=== PATIENT | female | born 1960 | race Caucasian/White ===

== ENCOUNTER 2019-11-25 13:37 | Observation (INO) | payer BC ==
[2019-11-25] MEDS ORDERED: GLUCAGON 1 MG/VIAL IM PRN (13:56)
[2019-11-25] MEDS ORDERED: D50W 25 GM/50 ML SYRINGE/VIAL IV PRN (13:56)
[2019-11-25 14:17] LABS: Absolute Lymphocytes (CBC) 2.3 K/uL (0.7-4.9); Basophils % 0.4 % (0-1.3); Hematocrit 39.2 % (36.0-45.0); Lymphocytes % 23.5 % (15.3-44.8); MPV 9.5 fL (7.6-11.3); RBC Red Blood Cell Count 4.47 M/uL (3.86-4.86)
[2019-11-25 14:22] VITALS: BMI 22.7
[2019-11-25 14:32] LABS: Potassium 3.6 mmol/L (3.5-5.1)
[2019-11-25 15:06] LABS: Urine Appearance CLOUDY; Urine Bilirubin NEGATIVE (NEG); Urine Blood NEGATIVE (NEG); Urine Color YELLOW; Urine Glucose 2+ (NEG); Urine Protein NEGATIVE (NEG); Urine Specific Gravity <=1.005 (1.005-1.030); Urine Urobilinogen 0.2 mg/dL (0.2-1.0); Urine pH 6.5 (5.0-7.0)
[2019-11-25 15:36] LABS: Urine Bacteria >50 /HPF (<20); Urine RBC <5 /HPF (NONE SEEN)
[2019-11-25 15:37] LABS: Urine Culture Reflex Order NOT NEEDED; Urine Mucus 1+ /HPF (NONE SEEN)
[2019-11-25] MEDS: INSULIN -REGULAR HUMAN 50 UNIT/0.5 ML ML SQ SCH ×2 (16:20→20:38)
[2019-11-25] MEDS ORDERED: INSULIN -REGULAR HUMAN 50 UNIT/0.5 ML ML SQ SCH (16:30)
--- NOTE | 2019-11-25 23:26 | HP ---
Date of Admission: 11/25/2019 History Of Present Illness: Patient presented to the office for general checkup. She states she has not had one for the last couple of years and however maybe the past week or so, she has noticed some nocturia, frequency, weight loss despite relatively normal appetite. Blood sugar in the office was in the 270 range and no prior history. No family history and discussion was made of the treatment an d she felt a little unsure with doing a monitoring at home, which I agreed with and therefore, she wa s admitted for treatment and depending on the results, use of insulin and medication should be handle d on an overnight basis. Past Medical History: Patient has been in good general health. No major medical problems. Medications: Only medication she takes, herbal vitamins. Social History: Nonsmoker and nondrinker. Family History: Noncontributory. Physical Examination: General: Patient is a rather thin elderly female. Vital Signs: Stable vital signs. Head and Neck: Normocephalic. Pupils equal and reactive to light and accommodation. Fundi negative . Trachea midline. Thyroid not palpable. ENT: Negative. Chest: Clear to P and A. Cardiovascular: PMI in midclavicular line. Heart: Sounds normal. Peripheral pulses present and equal bilaterally. Abdomen: No organomegaly. Bowel sounds present. Extremities: Moderately dehydrated. Good tone and movement bilaterally. Reflexes physiologic. Rectal: Deferred Pelvic: Deferred. Impression: Acute onset insulin-dependent diabetes mellitus. Plan: Patient will be admitted, placed on a sliding scale and depending on the results, may be maint ained on insulin and/or oral medication and dietary controls will be also instituted and possibly jefferson e diabetic teaching as well. HR/MODL Voice ID: [id number]
[2019-11-26 06:06] LABS: Absolute Lymphocytes (CBC) 2.5 K/uL (0.7-4.9); Basophils % 0.4 % (0-1.3); Hematocrit 36.7 % (36.0-45.0); Lymphocytes % 25.9 % (15.3-44.8); MPV 9.3 fL (7.6-11.3); RBC Red Blood Cell Count 4.15 M/uL (3.86-4.86)
[2019-11-26 06:24] LABS: Albumin 3.2 g/dL (3.4-5.0); Bilirubin Direct 0.1 mg/dL (0-0.2); Bilirubin Total 0.4 mg/dL (0.2-1.0); Potassium 3.7 mmol/L (3.5-5.1); Protein, Total 6.8 g/dL (6.4-8.2)
[2019-11-26] MEDS: INSULIN -REGULAR HUMAN 50 UNIT/0.5 ML ML SQ SCH ×4 (07:30→21:41)
[2019-11-26] MEDS: METFORMIN HCL 500 MG TAB PO ONE ×2 (11:00→14:03)
[2019-11-26 11:17] VITALS: O2SAT 99
[2019-11-26] MEDS ORDERED: POTASSIUM CL SA 10 MEQ TAB PO ONE (12:00)
--- NOTE | 2019-11-26 14:36 | RAD REPORT ---
EXAM DESCRIPTION: US - Abdomen Exam Complete - 11/26/2019 12:08 pm CLINICAL HISTORY: Abdominal pain COMPARISON: none FINDINGS: The liver has a normal echotexture. A gallstone is not seen. The gallbladder wall is not thickened. The biliary tree is normal caliber. The pancreas is normal in size and echotexture The right kidney measures 10 centimeters with a normal echotexture. The left kidney measures 12 centimeters with a normal echotexture. The spleen measures 8 centimeters. The abdominal aorta and inferior vena cava appear unremarkable IMPRESSION: No acute abnormality is displayed
[2019-11-26] MEDS ORDERED: GLUCAGON 1 MG/VIAL IM PRN ×2 (14:52→14:56)
[2019-11-26] MEDS ORDERED: D50W 25 GM/50 ML SYRINGE/VIAL IV PRN ×2 (14:52→14:56)
[2019-11-26] MEDS ORDERED: INSULIN -REGULAR HUMAN 50 UNIT/0.5 ML ML SQ SCH (16:30)
[2019-11-26] MEDS ORDERED: METFORMIN ER 500 MG TAB PO ONE (17:00)
--- NOTE | 2019-11-26 17:08 | PN ---
Date of Progress Note: 11/26/2019 Patient's blood sugar continues to run around in the 250 area. I will increase her sliding scale to moderate. She says she does not feel that she is capable of injecting herself with insulin. Metform in was added to the regimen. It will increase her activity as well. Clinically, she feels somewhat better, especially in regard to the frequency. She probably can be discharged tomorrow. HR/MODL Voice ID: [id number] Report ID: [id number]
[2019-11-26] MEDS ORDERED: ACETAMINOPHEN 500 MG TAB PO PRN (18:09)
[2019-11-26] MEDS ORDERED: SMZ./TMP. 800/160 MG TABLET PO ONE (19:37)
[2019-11-27 06:16] LABS: Potassium 4.1 mmol/L (3.5-5.1)
[2019-11-27] MEDS ORDERED: METFORMIN HCL 500 MG TAB PO ONE (08:00)
[2019-11-27] MEDS: INSULIN -REGULAR HUMAN 50 UNIT/0.5 ML ML SQ SCH (08:29)
[2019-11-27] MEDS ORDERED: SMZ./TMP. 800/160 MG TABLET PO SCH (09:00)
[2019-11-27] MEDS ORDERED: levoFLOXacin 500 MG TAB PO SCH (09:00)
[2019-11-27 09:12] VITALS: BP 112/55; TEMP 97.1
[2019-11-27] MEDS ORDERED: GLUCAGON 1 MG/VIAL IM PRN (10:32)
[2019-11-27] MEDS ORDERED: D50W 25 GM/50 ML SYRINGE/VIAL IV PRN (10:32)
[2019-11-27] MEDS ORDERED: INSULIN GLARGINE 100 UNITS/ML SQ ONE (11:00)
--- NOTE | 2019-11-27 12:58 | PN ---
Date of Progress Note: 11/27/2019 Patient states she feels a lot better. No frequency or nocturia. Her blood sugars are still elevate d in the 250 range. It was therefore decided to discharge her on 10 units of Lantus prior to dischar ge and to have her monitor blood sugars for the next 24 hours to be seen in the office on Thursday ro herman. She was placed on Levaquin for her UTI and instructed to get a glucometer for the next couple d ays to determine what machine and which insulin she qualifies for under her insurance plan. She was given her metformin today as well. HR/MODL Voice ID: [id number] Report ID: [id number]
[2019-11-28] MEDS ORDERED: INSULIN GLARGINE 100 UNITS/ML SQ ONE (11:00)
== END 2019-11-27 11:07 | disposition home or self-care (01) ==
LOC: 2ND 13:45
PROVIDERS: ADMIT Family Medicine; ATTEND Family Medicine
DX: E11.9 Type 2 diabetes mellitus without complications (principal); N39.0 Urinary tract infection, site not specified
CPT/HCPCS: 87088; 85025 ×2; 81001; 87086; 80048 ×3; 36415 ×3; 82010; 82150; 82947 ×12; 80076; 87077; 87186; 83036; 83690; 76700; G0379; G0378 ×4; J1815